=== PATIENT | male | born 1940 | race African-American/Black ===

== ENCOUNTER 2022-09-08 10:47 | Emergency (ER) | payer OTHER ==
[~2022-09-08] VITALS: Ht 182.9 cm; Wt 69.1 kg
[2022-09-08] MEDS ORDERED: IOHEXOL-350 100 ML BOTTLE ONE (11:14)
[2022-09-08] MEDS ORDERED: ASPIRIN 325MG EC TABLET PO ONE (11:45)
[2022-09-08] MEDS ORDERED: CLOPIDOGREL 75MG TABLET PO ONE (11:45)
[2022-09-08] MEDS ORDERED: ATORVASTATIN CALCIUM 40MG TABLET PO SCH (11:45)
[2022-09-08 12:15] LABS: INR 1.2; PROTHROMBIN TIME 12.4 sec (9.6-11.0)
[2022-09-08 12:17] LABS: CHLORIDE 110 mEq/L (98-107)
[2022-09-08 12:23] LABS: ETHANOL BLOOD < 10 mg/dL
[2022-09-08 14:14] LABS: BASOPHILS % 0.5 % (0.0-2.0); EOSINOPHILS % 2.7 % (0.0-5.0); HEMATOCRIT. 38.7 % (42.0-52.0); HEMOGLOBIN. 12.7 g/dL (14.0-18.0); LYMPHOCYTES % 29.2 % (20.0-50.0); MEAN CORPUSCULAR HEMOGLOBIN 28.6 pg (28.0-32.0); MEAN PLATELET VOLUME 8.7 fl (7.4-10.4); MONOCYTES % 11.3 % (2.0-8.0); NEUTROPHILS % 56.3 % (40.0-76.0); PLATELET 255 x1000/uL (130-400); RED BLOOD CELL COUNT 4.45 mill/uL (4.7-6.1); RED CELL DISTRIBUTION WIDTH 17.3 % (11.6-14.6)
[2022-09-08 18:25] VITALS: BP 158/73
== END 2022-09-08 18:35 | disposition short-term general hospital (02) ==
LOC: ER 10:47 → EDBEDREQ 12:21 → EDBEDREQTM 12:21 → EDBEDREQSVC 12:21 → CANBEDREQ 15:52 → ER 18:35
DX: R13.0 Aphagia (principal); I69.328 Other speech and language deficits following cerebral infarction; I10 Essential (primary) hypertension; Z20.822 Contact with and (suspected) exposure to COVID-19
CPT/HCPCS: 36415; 70450; 70496; 70498; 71045; 80053; 80320; 85025; 85610; 87426; 93005; 99291; C9803; Q9967; G0480